=== PATIENT | male | born 1950 ===

== ENCOUNTER → 2017-09-02 | Outpatient (CLI) | payer OTHER | END | disposition home or self-care (01) | LOC: C.PATH 12:10 | PROVIDERS: ATTEND Orthopaedic Surgery | DX: M19.032 Primary osteoarthritis, left wrist (principal); S63.512A Sprain of carpal joint of left wrist, initial encounter; G89.29 Other chronic pain; X58.XXXA Exposure to other specified factors, initial encounter ==